=== PATIENT | male | born 1980 | race Caucasian/White ===

== ENCOUNTER 2021-06-13 16:05 | Emergency (ER) | payer SELFPAY ==
[2021-06-13] MEDS ORDERED: Sodium Chloride 0.9% 10 ML Syringe FLUSH PRN (16:50)
[2021-06-13] MEDS ORDERED: Sodium Chloride 0.9% 1,000 ML IV ONE (16:51)
[2021-06-13 17:57] LABS: ACETAMINOPHEN 0 ug/mL (10-30)
== END 2021-06-13 19:20 | disposition left against medical advice (07) ==
LOC: JD.ED 16:05
DX: F10.129 Alcohol abuse with intoxication, unspecified (principal); R74.01 Elevation of levels of liver transaminase levels; I10 Essential (primary) hypertension; F17.210 Nicotine dependence, cigarettes, uncomplicated; Y90.8 Blood alcohol level of 240 mg/100 ml or more
CPT/HCPCS: 36415; 80053; 80143; 80179; 80306; 80307; 83605; 83690; 83735; 84443; 85025; 99284; J3490; J7030

== ENCOUNTER 2021-07-05 12:58 | Emergency (ER) | payer OTHER ==
[2021-07-05] MEDS ORDERED: Sodium Chloride 0.9% 1,000 ML IV ONE (13:12)
[2021-07-05] MEDS ORDERED: Sodium Chloride 0.9% 10 ML Syringe FLUSH PRN (13:12)
[2021-07-05] MEDS ORDERED: LORazepam 2 MG/ML SDV IVPUSH ONE (14:48)
== END 2021-07-05 15:39 | disposition other institution (70) ==
LOC: JD.ED 12:58
DX: F10.10 Alcohol abuse, uncomplicated (principal); I10 Essential (primary) hypertension; F17.210 Nicotine dependence, cigarettes, uncomplicated; Z79.899 Other long term (current) drug therapy
CPT/HCPCS: 36415; 80053; 80307; 83735; 85025; 85610; 96374; 99284; J2060; J3490; J7030

== ENCOUNTER 2022-01-01 09:55 | Emergency (ER) | payer SELFPAY ==
[2022-01-01] MEDS ORDERED: Lidocaine 1% 10 ML MDV INJECT ONE (10:35)
[2022-01-01] MEDS ORDERED: LORazepam 2 MG/ML SDV IVPUSH ONE (10:37)
[2022-01-01] MEDS ORDERED: Diphtheria,Pertussis(Acell),Tetanus Vaccine 0.5 ML Syringe IM ONE (10:37)
[2022-01-01] MEDS ORDERED: Dextrose 5%-Lactated Ringers 1,000 ML IV SCH (10:45)
[2022-01-01] MEDS ORDERED: cefTRIAXone 1 GM in Sodium Chloride 0.9% 100 ML IV ONE (11:14)
[2022-01-01 11:30] LABS: ESTIMATED GFR 96 mL/min (>60)
== END 2022-01-01 13:05 | disposition home or self-care (01) ==
LOC: JD.ED 09:55
DX: S61.512A Laceration without foreign body of left wrist, initial encounter (principal); F15.90 Other stimulant use, unspecified, uncomplicated; I10 Essential (primary) hypertension; F17.200 Nicotine dependence, unspecified, uncomplicated; Z23 Encounter for immunization; X78.9XXA Intentional self-harm by unspecified sharp object, initial encounter
CPT/HCPCS: 12004; 36415; 80053; 80306; 80307; 85025; 86140; 90471; 90715; 96365; 96375; 99283; J0696; J2060; J7121